=== PATIENT | male | born 1940 | race Caucasian/White ===

== ENCOUNTER → 2023-09-03 06:24 | Day surgery (SDC) | payer MEDICARE, OTHER, SELFPAY | LOC: GI 06:24 | PROVIDERS: ATTENDING PHYSICIAN Internal Medicine Gastroenterology; FAMILY PHYSICIAN Family Medicine | DX: Z12.11 Encounter for screening for malignant neoplasm of colon (principal); K22.70 Barrett's esophagus without dysplasia; K63.89 Other specified diseases of intestine; K64.8 Other hemorrhoids; D12.3 Benign neoplasm of transverse colon; D12.8 Benign neoplasm of rectum; D12.6 Benign neoplasm of colon, unspecified; Z86.010 Personal history of colon polyps; K22.89 Other specified disease of esophagus; K31.7 Polyp of stomach and duodenum | CPT/HCPCS: 45385; 45380; 43239; 88305; 88342 ==

== ENCOUNTER 2023-12-04 09:44 | Day surgery (SDC) | payer MEDICARE, OTHER, SELFPAY ==
[2023-12-04 08:14] VITALS: BMI 25.4
[2023-12-04 08:15] VITALS: BP 149/65
[2023-12-04 08:17] VITALS: BMI 25.4
[2023-12-04 08:37] LABS: Glucose - Point of Care 118 mg/dl (70-99)
[2023-12-04 10:24] VITALS: BP 115/78
[2023-12-04 10:25] VITALS: BP 115/78
[2023-12-04 10:30] VITALS: BP 125/74
[2023-12-04 10:32] LABS: Glucose - Point of Care 109 mg/dl (70-99)
== END 2023-12-04 11:17 | disposition home or self-care (01) ==
LOC: SDS 09:44
PROVIDERS: ATTENDING PHYSICIAN Internal Medicine Gastroenterology
DX: D12.2 Benign neoplasm of ascending colon (principal); D12.6 Benign neoplasm of colon, unspecified; K64.1 Second degree hemorrhoids; Z98.0 Intestinal bypass and anastomosis status
CPT/HCPCS: 45390; 45385; 88305; 82962

== ENCOUNTER 2024-08-08 06:20 | Day surgery (SDC) | payer MEDICARE, OTHER, SELFPAY ==
[2024-08-08 07:26] LABS: Glucose - Point of Care 130 mg/dl (70-99)
== END 2024-08-08 09:17 | disposition home or self-care (01) ==
LOC: GI 06:20
PROVIDERS: ATTENDING PHYSICIAN Internal Medicine Gastroenterology
DX: K63.89 Other specified diseases of intestine (principal); K64.8 Other hemorrhoids; D17.79 Benign lipomatous neoplasm of other sites; D12.2 Benign neoplasm of ascending colon; D12.3 Benign neoplasm of transverse colon; Z86.0101 Personal history of adenomatous and serrated colon polyps
CPT/HCPCS: 45380; 88305; 82962